=== PATIENT | female | born 1980 | race Caucasian/White ===

== ENCOUNTER 2016-09-26 06:56 | Day surgery (SDC) | payer OTHER ==
[2016-09-25 12:11] VITALS: BMI 29.2
[2016-09-26] MEDS ORDERED: ROPIVACAINE HCL 0.5% 30ML VIAL ONE (08:35)
[2016-09-26] MEDS ORDERED: MIDAZOLAM HCL 2 MG/2 ML SINGLE DOSE VIAL ONE ×2 (08:36)
--- NOTE | 2016-09-26 09:16 | HP ---
[facility] - Chief Complaint Chief Complaint: right shoulder pain - Past Medical History Allergies/Adverse Reactions: Allergies Allergy/AdvReac Type Severity Reaction Status Date / Time acetaminophen [From Tylenol] AdvReac Intermediate Rash Verified 09/25/16 12:12 COLD MEDICINE AdvReac Intermediate Rash Uncoded 09/25/16 12:13 ...LMP: 09/21/16 - Current Medications Current Medications: Home Medications Medication Instructions Recorded Oxycodone HCl [Roxicodone] 5 mg PO Q6H #40 tablet MDD 4 09/26/16 Oxycodone HCl/Acetaminophen 1 - 2 tab PO Q6H #50 tab MDD 8 09/26/16 [Percocet 5-325 mg Tablet -] [facility] Physical Exam - Physical Examination Vital Signs: Vital Signs Period Temp Pulse Resp BP Sys/Amaya Pulse Ox Last 24 Hr 97.9 F 80 18 131/66 97 General Appearance: Well Nourished, Well Developed, Alert & Oriented x3 ENT: Clear Lung: Normal air movement Heart: Regular rate & rhythm Extremities: Other (right shoulder- +ttp, decr rom, + neer, + streeter, nvi) Neurological: Intact, Alert, Oriented [facility] Impression/Plan - Impression/Plan Impression: right shoulder impingement Operative Procedure: right shoulder arthroscopy JARRED ANN Date to be Performed: 09/26/16
[2016-09-26] MEDS ORDERED: PROPOFOL 20 ML ONE ×2 (09:40→10:24)
[2016-09-26] MEDS ORDERED: ROCURONIUM BROMIDE 50 MG/5 ML VIAL ONE (09:40)
[2016-09-26] MEDS ORDERED: ceFAZolin SODIUM 1 GM VIAL IVPB ONE (09:55)
[2016-09-26] MEDS ORDERED: ceFAZolin SODIUM 1 GM VIAL ONE (10:04)
[2016-09-26] MEDS ORDERED: KETOROLAC TROMETHAMINE 30 MG/1 ML VIAL ONE (10:22)
[2016-09-26] MEDS ORDERED: DEXAMETHASONE SOD PHOSPHATE 4 MG/1 ML VIAL ONE (10:22)
[2016-09-26] MEDS ORDERED: GLYCOPYRROLATE 0.2 MG/1 ML VIAL ONE (10:22)
[2016-09-26] MEDS ORDERED: LIDOCAINE HCL 2% (20ML MULTI-DOSE VIAL) NR ONE (10:22)
[2016-09-26] MEDS ORDERED: NEOSTIGMINE METHYLSULFATE 0.5 MG/ML - 10 ML MDV ONE (10:23)
--- NOTE | 2016-09-26 10:45 | OP ---
Operative Note - Note: Operative Date: 09/26/16 ([facility]) Pre-Operative Diagnosis: right shoulder impingement, adhesive capsulitis Operation: right shoulder arthroscopy with JARRED ANN Post-Operative Diagnosis: Same as Pre-op Surgeon: Trace Stratton Vocational Rehabilitation Teacher: Valdez Alfaro Anesthesiologist/AUTO AIR CONDITIONING INSTALLER: Allyssa Lance MD Anesthesia: General, Local Specimens Removed: shavings Estimated Blood Loss (mls): 5 Operative Report Dictated: Yes
[2016-09-26] MEDS ORDERED: ONDANSETRON 4 MG/2 ML VIAL IVPUSH PRN (11:32)
[2016-09-26] MEDS ORDERED: oxyCODONE HCL 5 MG TABLET PO PRN (11:32)
[2016-09-26] MEDS ORDERED: PROMETHAZINE HCL 25 MG/1 ML VIAL IVPUSH PRN (11:32)
[2016-09-26] MEDS ORDERED: LACTATED RINGERS SOLUTION 1,000 ML IV SCH (11:45)
[2016-09-26 11:54] VITALS: TEMP 98
[2016-09-26 13:51] VITALS: BP 121/70; PULSE 70
--- NOTE | 2016-09-26 15:30 | OP ---
DATE OF OPERATION: 09/26/2016 PREOPERATIVE DIAGNOSIS: Impingement right shoulder. POSTOPERATIVE DIAGNOSIS: Impingement right shoulder. PROCEDURE: Arthroscopy right shoulder with subacromial decompression and manipulation under anesthesia. SURGICAL ATTENDING: Trace Stratton M.D. CONFERENCE ASSISTANT: Radha Mortensen ANESTHESIA: Regional and general. CLOSURE: 3-0 nylon. COMPLICATIONS: None. CONDITION: To recovery in stable condition. DESCRIPTION OF PROCEDURE: Patient taken to operating room on September 26, 2016. Scalene block followed by general anesthesia was administered by the anesthesiologist. IV Kefzol was given prophylactically prior to the case. Patient was placed in a beach chair position with all prominences well padded. Right shoulder was prepped in the usual sterile fashion. First the manipulation under anesthesia was performed. The patient was only able to go to about neutral, but with gentle manipulation I was easily able to break up scar tissue and get her to about 60 degrees of external rotation. Forward flexion was also limited to about 90, but I was able to get it up to 170. Internal rotation was not limited. The puncture portal was made 2 fingerbreadths below the acromion first with a trocar circumferential exam of the glenohumeral joint revealed the following: intact glenohumeral head, articular cartilage intact, labrum circumferentially intact, biceps and biceps anchor, rotator cuff was found to be intact no loose bodies in the axillary pouch. No fluid was drained. The trocar was removed. The posterior trocar was redirected in the subacromial space and accessory lateral portal was performed. The Arthrocare device was used to clean off significant amount of scar tissue in the subacromial space. ligament was identified and detached anteriorly. A lip of bone anteriorly was debrided using the acromionizer bur, achieving excellent width and height for the underlying rotator cuff, shoulder was taken through range of motion found to have good clearance under direct visualization again the rotator cuff revealed completely intact on the bursal side as well. The fluid was drained, the trocars were removed, the port was closed with 3-0 nylon with pressure dressing and sling was applied. Patient was transferred to recovery in stable condition with no complications. Estimated blood loss negligible. TRACE STRATTON M.D. [id number]
--- NOTE | 2016-09-27 16:14 | PATH ---
Surgical Pathology Report Patient Name: MORIS MCCARTY [facility]. Rec. #: [id number] /Age/Gender: 1980 (Age: 35) / F Account: [id number] Location: [facility] Taken: 09/26/2016 Received: 09/26/2016 Reported: 09/27/2016 Physicians: Trace Stratton M.D. Specimen(s) Received SHAVINGS RIGHT SHOULDER Clinical History Right shoulder tear Final Diagnosis SOFT TISSUE, RIGHT SHOULDER, ARTHROSCOPIC SHAVINGS: SYNOVIUM AND FIBROCARTILAGE WITH MYXOHYALINE DEGENERATION. FRAGMENTS OF UNREMARKABLE BONE AND SKELETAL MUSCLE. Electronically Signed Joaquin Marquez M.D. Gross Description Received in formalin, labeled "right shoulder shavings" is a 3.0 x 2.0 x 0.3 cm aggregate of lloyd-yellow soft tissue fragments. A merchandising representative portion is submitted in one cassette. /09/26/201609/26/2016
== END 2016-09-26 13:53 | disposition home or self-care (01) ==
LOC: JASU-SURG 06:56
PROVIDERS: ATTEND Orthopaedic Surgery
PROC: 0RBJ4ZZ Excision of Right Shoulder Joint, Percutaneous Endoscopic Approach (ICD-10-PCS; principal; 2016-09-26 08:45)
PROC: 0RNJXZZ Release Right Shoulder Joint, External Approach (ICD-10-PCS; 2016-09-26 08:45)
DX: M75.41 Impingement syndrome of right shoulder (principal); M75.01 Adhesive capsulitis of right shoulder
CPT/HCPCS: 84703; 88304-TC; 94760